=== PATIENT | female | born 1945 | race African-American/Black ===

== ENCOUNTER 2024-08-28 10:34 | Emergency (ER) | payer OTHER ==
[~2024-08-28] VITALS: Ht 170.2 cm; Wt 104.0 kg
[2024-08-28 10:35] VITALS: O2SAT 98
[2024-08-28 11:02] LABS: BASOPHILS % 0.3 % (0.0-2.0); DIFFERENTIAL COMMENT 0; EOSINOPHILS % 0.2 % (0.0-5.0); HEMATOCRIT. 29.6 % (36.0-48.0); HEMOGLOBIN. 9.9 g/dL (12.0-16.0); LYMPHOCYTES % 17.5 % (20.0-50.0); MEAN CORPUSCULAR HEMOGLOBIN 34.6 pg (28.0-32.0); MEAN CORPUSCULAR HGB CONC 33.4 g/dL (31.0-37.0); MEAN CORPUSCULAR VOLUME 103.8 fL (81.0-99.0); MEAN PLATELET VOLUME 6.5 fl (7.4-10.4); PLATELET 140 x1000/uL (130-400); RED BLOOD CELL COUNT 2.85 mill/uL (4.2-5.4); RED CELL DISTRIBUTION WIDTH 16.1 % (11.6-14.6)
[2024-08-28] MEDS: SODIUM CHLORIDE 0.9% 1,000 ML IV ONE (11:11)
[2024-08-28] MEDS: PIPERACILLIN/TAZO 3.375G/50ML 50 ML IV ONE (11:11)
[2024-08-28 11:12] LABS: POTASSIUM 4.4 mEq/L (3.5-5.1)
[2024-08-28 11:13] LABS: CALCIUM 8.9 mg/dL (8.7-10.4); INR 1.2; PROTHROMBIN TIME 13.3 sec (9.6-11.0)
[2024-08-28 11:18] LABS: CREATININE 1.2 mg/dL (0.6-1.0)
[2024-08-28] MEDS: VANCOMYCIN 1G PREMIX 200 ML IV ONE (11:43)
[2024-08-28] MEDS: SODIUM CHLORIDE 0.9% (SEPSIS BOLUS) IV ONE (12:12)
[2024-08-28 13:48] LABS: TROPONIN I HIGH SENSITIVITY 13 ng/L (3.0-34)
[2024-08-28 13:52] LABS: ALANINE AMINOTRANSFERASE 18 IU/L (10-49); ALBUMIN 3.7 g/dL (3.2-4.8); ASPARTATE AMINOTRANSFERASE 43 IU/L (<34); BILIRUBIN DIRECT 0.3 mg/dL (<=3.0); PROTEIN TOTAL 5.9 g/dL (6.0-8.3)
[2024-08-28 16:00] VITALS: BP 140/86; PULSE 89; RESP 15; TEMP 36.7; O2SAT 98
== END 2024-08-28 16:38 | disposition short-term general hospital (02) ==
LOC: ER 10:40 → EDBEDREQ 12:03 → CANBEDREQ 12:36 → ER 16:38
DX: A41.9 Sepsis, unspecified organism (principal); R65.20 Severe sepsis without septic shock; E11.9 Type 2 diabetes mellitus without complications; E78.00 Pure hypercholesterolemia, unspecified; I10 Essential (primary) hypertension
CPT/HCPCS: 99291; 96365; 96367; 80076; 80048; 83605; 85025; 85610; 87040; 84484; 36415; 84145; 71045; 93005; J2543; J3370; J7030